=== PATIENT | female | born 1990 | race Caucasian/White ===

== ENCOUNTER 2017-08-21 10:08 | Emergency (ER) | payer OTHER ==
[~2017-08-21] VITALS: Ht 165.1 cm; Wt 49.0 kg
[~2017-08-21 10:08] MED LIST: CYCL10TA9 PO; NAPR-243 PO
--- OUTSIDE RECORDS SUMMARY | 2017-08-21 10:56 | XMS REPORT | Continuity of Care Document ---
Author Author [facility] Organization [facility] Address Unknown Phone Unavailable Allergies Active Description Code Type Severity Reaction Onset Reported/Identified Relationship to Patient Clinical Status Yes No Known Drug Allergies [id number] Drug Allergy Unknown N/A 03/11/2010 Medications There is no data. Problems Date Dx Coded Attending Type Code Diagnosis Diagnosed By 03/11/2010 Ot 530.81 03/11/2010 Ot 535.40 11/30/2014 YANNI MARSHALL Ot 847.0 11/30/2014 YANNI MARSHALL Ot 959.01 11/30/2014 YANNI MARSHALL Ot E812.0 Procedures There is no data. Results There is no data. Encounters ACCT No. Visit Date/Time Discharge Status Pt. Type Provider Facility Loc./Unit Complaint [id number] 11/30/2014 15:37:00 11/30/2014 17:17:00 DIS Emergency YANNI MARSHALL [facility] ER [id number] 03/11/2010 10:15:00 Document Registration
[2017-08-21] MEDS ORDERED: PROM25TA14 (11:34)
[2017-08-21] MEDS ORDERED: SULF1TAB35 (11:34)
[2017-08-21 11:46] LABS: BILIRUBIN,URINE NEGATIVE (NEGATIVE); CLARITY,URINE CLEAR; COLOR,URINE YELLOW; GLUCOSE, URINE (UA) NEGATIVE (NEGATIVE); KETONES,URINE NEGATIVE (NEGATIVE); LEUKOCYTE ESTERASE ,URINE 2+ (NEGATIVE); NITRITE,URINE NEGATIVE (NEGATIVE); PH,URINE 7 (5-9); PROTEIN,URINE NEGATIVE (NEGATIVE); UROBILINOGEN,URINE NORMAL (NORMAL)
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
[2017-08-21 11:59] LABS: AMPHETAMINE SCREEN, URINE NEGATIVE (NEGATIVE); BARBITURATE SCREEN URINE NEGATIVE (NEGATIVE); BENZODIAZEPINES SCREEN URINE NEGATIVE (NEGATIVE); CANNABINOID SCREEN, URINE NEGATIVE (NEGATIVE); COCAINE SCREEN URINE NEGATIVE (NEGATIVE); METHADONE STAT NEGATIVE (NEGATIVE); METHAMPHETAMINE SCREEN URINE S NEGATIVE (NEGATIVE); OPIATE SCREEN URINE NEGATIVE (NEGATIVE); OXYCODONE STAT NEGATIVE (NEGATIVE); PROPOXYPHENE STAT NEGATIVE (NEGATIVE); TRICYCLIC ANTIDEPRESSANTS SCRE NEGATIVE (NEGATIVE)
[2017-08-21 12:03] LABS: RBC,URINE 0-2 /HPF
[2017-08-21 12:04] LABS: BACTERIA,URINE TRACE /HPF; WBC,URINE 0-2 /HPF
[2017-08-21] MEDS ORDERED: CYCLOBENZAPRINE 10 MG (FLEXERIL) TAB PO STA (12:07)
[2017-08-21] MEDS ORDERED: ACETAMINOPHEN 325 MG TABLET PO STA (12:07)
[2017-08-21] MEDS ORDERED: CYCL10TA9 PO (12:26)
[2017-08-21 12:31] VITALS: BP 118/74
== END 2017-08-21 12:31 | disposition home or self-care (01) ==
LOC: EDUNIT# 10:08 → ER 10:11
DX: S09.90XA Unspecified injury of head, initial encounter (principal); S29.012A Strain of muscle and tendon of back wall of thorax, initial encounter; J45.909 Unspecified asthma, uncomplicated; R40.2142 Coma scale, eyes open, spontaneous, at arrival to emergency department; R40.2252 Coma scale, best verbal response, oriented, at arrival to emergency department; R40.2362 Coma scale, best motor response, obeys commands, at arrival to emergency department; Z87.19 Personal history of other diseases of the digestive system; Z87.828 Personal history of other (healed) physical injury and trauma; V43.52XA Car driver injured in collision with other type car in traffic accident, initial encounter
CPT/HCPCS: 80306; 81000; 84703; 99283

== ENCOUNTER 2018-02-10 23:07 | Emergency (ER) | payer SELFPAY ==
[~2018-02-10] VITALS: Ht 165.1 cm; Wt 53.5 kg
[~2018-02-10 23:07] MED LIST changes: +PROM25TA14; +SULF1TAB35
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
[2018-02-10 23:19] VITALS: BP 112/80
[2018-02-10 23:22] VITALS: BP_SYST 112; BP_SYST 117; BP_DIAS 80; BP_DIAS 82
--- NOTE | 2018-02-10 23:29 | ED Syncope ---
General Stated Complaint: SEIZURE,FELL & HIT HEAD Source of Information: Patient, Family Exam Limitations: No Limitations History of Present Illness Date Seen by Provider: Feb 10, 2018 Time Seen by Provider: 23:13 Initial Comments The patient presents to the ER by private conveyance with her mother and significant other and chief complaint that just prior to arrival she was in the kitchen and she said she was making a peanut butter and honey sandwich and she doesn't remember anything past that until she woke up on the floor with her mother shouting over her. Her mother says that she fell to the ground struck her head and had some convulsions and seizure-like activity for 1 minute or less. She does not have a history of seizures but she does have a history of syncopal episodes in the past. She denies smoking drinking or using drugs. She does not have any postictal period nor does she have any nausea, confusion or headache. She says she's having no pain right now. No pain in her neck. No recent illness, cough fevers, chills, sweats, shortness of breath, nausea, vomiting, diarrhea. She says been eating and drinking normally. She is on her period presently. She has no medical or surgical history. She does take medicines for anxiety, panic attacks and stomach ulcers for which she is on Carafate and Nexium. She takes Remeron, desvenlafaxine. She denies history of thyroid or diabetes. Allergies and Home Medications Allergies Coded Allergies: amoxicillin (Verified Allergy, Unknown, RASH, 02/10/18) Home Medications Cyclobenzaprine HCl 10 Mg Tablet, 10 MG PO Q8H Prescribed by: MARY ROOT on 08/21/17 1226 Cyclobenzaprine Hcl 10 Mg Tablet, 1 EACH PO Q8H PRN for SPASMS Prescribed by: YANNI BLANCAS on 11/30/14 170 Naproxen 500 Mg Tablet, 1 EACH PO BID PRN for PAIN FOR PAIN Prescribed by: YANNI BLANCAS on 11/30/14 170 Patient Home Medication List Home Medication List Reviewed: Yes Review of Systems Constitutional: No chills, No diaphoresis EENTM: No ear discharge, No hearing loss, No mouth pain, No mouth swelling Respiratory: No orthopnea, No phlegm, No short of breath, No wheezing Cardiovascular: No chest pain, No edema; syncope; No vascular heart diseas Gastrointestinal: No abdominal pain, No constipation, No diarrhea Genitourinary: No discharge; dysuria Past Mvgvgqw-Cvpxsu-Zkzcja Hx Patient Social History Alcohol Use: Denies Use Recreational Drug Use: No Smoking Status: Never a Smoker Recent Foreign Travel: No Contact w/Someone Who Travel: No Recent Hopitalizations: No Immunizations Up To Date Tetanus Booster (TDap): Less than 5yrs PED Vaccines UTD: Yes Seasonal Allergies Seasonal Allergies: No Past Medical History Surgeries: Yes (ORAL) Respiratory: Yes Asthma Cardiac: No Neurological: No Gastrointestinal: Yes (ULCER) Musculoskeletal: No Endocrine: No Cancer: No Psychosocial: No Integumentary: No Blood Disorders: No Physical Exam Vital Signs Vital Signs - First Documented 02/10/18 23:15 Temp 97.0 Pulse 73 Resp 17 B/P (MAP) 112/80 (91) Capillary Refill : Height, Weight, BMI Height: 5'5.00" Weight: 108lbs. oz. 48.726320my; BMI Method:Stated General Appearance: No Apparent Distress, Thin HEENT: PERRL/EOMI, TMs Normal, Normal ENT Inspection, Pharynx Normal, Moist Mucous Membranes, Other (head and scalp atraumatic without battles sign, raccoon eyes or hemotympanum) Neck: Full Range of Motion, Normal Inspection, Non Tender, Supple Cardiovascular: Regular Rate, Rhythm, No Edema, Normal Peripheral Pulses Respiratory: Chest Non Tender, Lungs Clear, Normal Breath Sounds, No Accessory Muscle Use, No Respiratory Distress Gastrointestinal: Normal Bowel Sounds, Non Tender, Soft Back: Normal Inspection, No Vertebral Tenderness Extremities: Normal Capillary Refill, Normal Inspection, Normal Range of Motion , Non Tender, No Pedal Edema Neurologic/Psychiatric: Alert, Oriented x3, No Motor/Sensory Deficits, Normal Mood/Affect, utility hand II-XII Norm as Tested Cranial Nerves: Normal Hearing, Normal Speech, PERRL Motor/Sensory: No Motor Deficit, No Sensory Deficit Skin: Normal Color, Warm/Dry Progress/Results/Core Measures Results/Orders Lab Results Laboratory Tests Test 02/10/18 23:35 02/10/18 23:50 Range/Units Urine Color YELLOW Urine Clarity CLEAR Urine pH 6 5-9 Urine Specific Glover 1.025 H 1.016-1.022 Urine Protein 2+ H NEGATIVE Urine Glucose (UA) NEGATIVE NEGATIVE Urine Ketones NEGATIVE NEGATIVE Urine Nitrite NEGATIVE NEGATIVE Urine Bilirubin NEGATIVE NEGATIVE Urine Urobilinogen NORMAL NORMAL MG/DL Urine Leukocyte Esterase 2+ H NEGATIVE Urine RBC (Auto) 5+ H NEGATIVE Urine RBC 2-5 H /HPF Urine WBC 5-10 H /HPF Urine Squamous Epithelial Cells 10-25 H /HPF Urine Crystals NONE /LPF Urine Bacteria MODERATE H /HPF Urine Casts NONE /LPF Urine Mucus LARGE H /LPF Urine Culture Indicated YES Urine Opiates Screen NEGATIVE NEGATIVE Urine Oxycodone Screen NEGATIVE NEGATIVE Urine Methadone Screen NEGATIVE NEGATIVE Urine Propoxyphene Screen NEGATIVE NEGATIVE Urine Barbiturates Screen NEGATIVE NEGATIVE Ur Tricyclic Antidepressants Screen POSITIVE H NEGATIVE Urine Phencyclidine Screen NEGATIVE NEGATIVE Urine Amphetamines Screen NEGATIVE NEGATIVE Urine Methamphetamines Screen NEGATIVE NEGATIVE Urine Benzodiazepines Screen NEGATIVE NEGATIVE Urine Cocaine Screen NEGATIVE NEGATIVE Urine Cannabinoids Screen NEGATIVE NEGATIVE White Blood Count 7.3 4.3-11.0 10^3/uL Red Blood Count 4.19 L 4.35-5.85 10^6/uL Hemoglobin 13.7 11.5-16.0 G/DL Hematocrit 39 35-52 % Mean Corpuscular Volume 94 80-99 FL Mean Corpuscular Hemoglobin 33 25-34 PG Mean Corpuscular Hemoglobin Concent 35 32-36 G/DL Red Cell Distribution Width 12.1 10.0-14.5 % Platelet Count 264 130-400 10^3/uL Mean Platelet Volume 9.2 7.4-10.4 FL Neutrophils (%) (Auto) 59 42-75 % Lymphocytes (%) (Auto) 29 12-44 % Monocytes (%) (Auto) 10 0-12 % Eosinophils (%) (Auto) 3 0-10 % Basophils (%) (Auto) 1 0-10 % Neutrophils # (Auto) 4.3 1.8-7.8 X 10^3 Lymphocytes # (Auto) 2.1 1.0-4.0 X 10^3 Monocytes # (Auto) 0.7 0.0-1.0 X 10^3 Eosinophils # (Auto) 0.2 0.0-0.3 10^3/uL Basophils # (Auto) 0.0 0.0-0.1 10^3/uL Sodium Level 138 135-145 MMOL/L Potassium Level 3.5 L 3.6-5.0 MMOL/L Chloride Level 105 98-107 MMOL/L Carbon Dioxide Level 24 21-32 MMOL/L Anion Gap 9 5-14 MMOL/L Blood Urea Nitrogen 13 7-18 MG/DL Creatinine 0.86 0.60-1.30 MG/DL Estimat Glomerular Filtration Rate > 60 BUN/Creatinine Ratio 15 Glucose Level 106 H 70-105 MG/DL Calcium Level 9.3 8.5-10.1 MG/DL Corrected Calcium 9.0 8.5-10.1 MG/DL Total Bilirubin 0.3 0.1-1.0 MG/DL Aspartate Amino Transf (AST/SGOT) 15 5-34 U/L Alanine Aminotransferase (ALT/SGPT) 16 0-55 U/L Alkaline Phosphatase 69 40-136 U/L Total Protein 7.1 6.4-8.2 GM/DL Albumin 4.4 3.2-4.5 GM/DL Thyroid Stimulating Hormone (TSH) 7.25 H 0.35-4.94 UIU/ML Serum Test, Qualitative NEGATIVE NEGATIVE My Orders Orders - CELESTE KUHN Cbc With Automated Diff (02/10/18 23:20) Comprehensive Metabolic Panel (02/10/18 23:20) Drug Screen Stat (Urine) (02/10/18 23:20) Hcg,Qualitative Serum (02/10/18 23:20) Ua Culture If Indicated (02/10/18 23:20) Orthostatic Vital Signs (Adult (02/10/18 23:20) Ekg Tracing (02/10/18 23:20) Continuous Ekg Monitoring (02/10/18 23:20) Thyroid Stimulating Hormone (02/10/18 23:20) Urine Culture (02/10/18 23:35) Chest 1 View, Ap/Pa Only (02/11/18 00:01) Vital Signs/I&O 02/10/18 02/10/18 23:15 23:22 Temp 97.0 Pulse 73 73 79 Resp 17 B/P (MAP) 112/80 (91) 112/80 (91) 117/82 (94) Progress Progress Note : Time: 23:30 Progress Note Syncopal episode with collapse from standing. No evidence of outward trauma. She 's not on blood thinners and given her age a intracranial hemorrhage with normal neurologic testing is low likelihood. She is agreed to do 12 hours of at home neurologic observation. Looking for a source for her syncopal episode we will obtain a urinalysis, basic labs and a set of orthostatic vital signs. The orthostatic vital signs are unremarkable. EKG reveals first-degree AV block. Review of previous records demonstrates she did have a Holter monitor in 2006 that was unremarkable. No other previous workup is evident per our records. We will obtain TSH, basic labs, urinalysis, urine hCG and keep her on the monitor while she's here. If we don't find a reason for her syncopal collapse and we can set her up outpatient with her primary care doctor and/or party planner to rule out dysrhythmia. As far as her seizure-like activity after the collapse it's possible this could be seizures but since this is the first isolated incident had occurred after she fell and is more likely just reactive to whatever initially caused her syncope. Initial ECG Impression Date: Feb 10, 2018 Initial ECG Impression Time: 23:24 Initial ECG Rate: 67 Initial ECG Rhythm: Normal Sinus Initial ECG Intervals: CO (216) Initial ECG Impression: 1st Degree AV Block Initial ECG Comparisson: No Previous ECG Available Comment First-degree AV block without any ST elevation or depression. Diagnostic Imaging Diagonstic Imaging: Xray Plain Films/CT/US/NM/MRI: chest (1v) Comments No acute cardiopulmonary process noted. Reviewed: Reviewed by Me Departure Impression Primary Impression: Syncope and collapse Additional Impressions: Observed seizure-like activity UTI (urinary tract infection) Qualified Codes: N30.00 - Acute cystitis without hematuria Hypothyroidism (acquired) Disposition: 01 HOME, SELF-CARE Condition: Stable Departure-Patient Inst. Decision time for Depature: 00:59 Referrals: [facility] (PCP/Family) Primary Care Physician Patient Instructions: Hypothyroidism (Underactive Thyroid) (DC), Syncope ( Fainting) (DC) Add. Discharge Instructions: Please picker tender the Macrobid and start taking it twice a day with food for the next 7 days to treat your urinary tract infection. supervisor rolling room the Synthroid and start taking it 30 minutes before eating or drinking in the morning and continue doing this until you see your primary care doctor in the next 1-2 weeks. Scripts Levothyroxine Sodium (Synthroid) 50 Mcg Tablet 50 MCG PO DAILY for 30 Days, #30 TAB 0 Refills Prov: CELESTE KUHN 02/11/18 Nitrofurantoin Macrocrystal (Nitrofurantoin) 100 Mg Capsule 100 MG PO BID, #14 CAP 0 Refills Prov: CELESTE KUHN 02/11/18 Copy Copies To 1: NADEEM KUMAR TITUS J Feb 10, 2018 23:29
[2018-02-10 23:42] LABS: BILIRUBIN,URINE NEGATIVE (NEGATIVE); CLARITY,URINE CLEAR; COLOR,URINE YELLOW; GLUCOSE, URINE (UA) NEGATIVE (NEGATIVE); KETONES,URINE NEGATIVE (NEGATIVE); LEUKOCYTE ESTERASE ,URINE 2+ (NEGATIVE); NITRITE,URINE NEGATIVE (NEGATIVE); PH,URINE 6 (5-9); PROTEIN,URINE 2+ (NEGATIVE); UROBILINOGEN,URINE NORMAL (NORMAL)
[2018-02-10 23:55] LABS: BACTERIA,URINE MODERATE /HPF; METHADONE STAT NEGATIVE (NEGATIVE); TRICYCLIC ANTIDEPRESSANTS SCRE POSITIVE (NEGATIVE)
[2018-02-10 23:56] LABS: AMPHETAMINE SCREEN, URINE NEGATIVE (NEGATIVE); BARBITURATE SCREEN URINE NEGATIVE (NEGATIVE); BENZODIAZEPINES SCREEN URINE NEGATIVE (NEGATIVE); CANNABINOID SCREEN, URINE NEGATIVE (NEGATIVE); COCAINE SCREEN URINE NEGATIVE (NEGATIVE); METHAMPHETAMINE SCREEN URINE S NEGATIVE (NEGATIVE); OPIATE SCREEN URINE NEGATIVE (NEGATIVE); OXYCODONE STAT NEGATIVE (NEGATIVE); PROPOXYPHENE STAT NEGATIVE (NEGATIVE)
[2018-02-10 23:56] LABS: BASOPHILS % (AUTO) 1 % (0-10); EOSINOPHILS # (AUTO) 0.2 10^3/uL (0.0-0.3); EOSINOPHILS % (AUTO) 3 % (0-10); HEMATOCRIT 39 % (35-52); HEMOGLOBIN 13.7 G/DL (11.5-16.0); LYMPHOCYTES # (AUTO) 2.1 X 10^3 (1.0-4.0); LYMPHOCYTES % (AUTO) 29 % (12-44); MEAN CORPUSCULAR HEMOGLOBIN 33 PG (25-34); MEAN CORPUSCULAR HGB CONC 35 G/DL (32-36); MEAN CORPUSCULAR VOLUME 94 FL (80-99); MEAN PLATELET VOLUME 9.2 FL (7.4-10.4); MONOCYTES # (AUTO) 0.7 X 10^3 (0.0-1.0); MONOCYTES % (AUTO) 10 % (0-12); NEUTROPHILS # (AUTO) 4.3 X 10^3 (1.8-7.8); NEUTROPHILS % (AUTO) 59 % (42-75); PLATELET COUNT 264 10^3/uL (130-400); RED BLOOD COUNT 4.19 10^6/uL (4.35-5.85); RED CELL DISTRIBUTION WIDTH 12.1 % (10.0-14.5); WHITE BLOOD COUNT 7.3 10^3/uL (4.3-11.0)
[2018-02-11 00:16] LABS: BUN/CREATININE RATIO 15; CARBON DIOXIDE 24 MMOL/L (21-32); CHLORIDE 105 MMOL/L (98-107); CREATININE SERUM 0.86 MG/DL (0.60-1.30); POTASSIUM 3.5 MMOL/L (3.6-5.0); SODIUM 138 MMOL/L (135-145)
[2018-02-11 00:17] LABS: ALANINE AMINOTRANSFERASE 16 U/L (0-55); ALBUMIN 4.4 GM/DL (3.2-4.5); ALKALINE PHOSPHATASE 69 U/L (40-136); BILIRUBIN,TOTAL 0.3 MG/DL (0.1-1.0); CALCIUM 9.3 MG/DL (8.5-10.1); GFR ESTIMATED > 60; GLUCOSE 106 MG/DL (70-105); TOTAL PROTEIN 7.1 GM/DL (6.4-8.2)
[2018-02-11] MEDS ORDERED: NITR100C PO (01:01)
[2018-02-11] MEDS ORDERED: LEVO50TA PO (01:01)
[2018-02-11 01:22] VITALS: BP 117/82
--- NOTE | 2018-02-11 06:50 | Diagnostic Imaging Report ---
INDICATION: Syncope. COMPARISON: 11/30/2014. FINDINGS: Single view of the chest demonstrate clear lungs bilaterally. The heart is normal. There is no pneumothorax. Osseous structures are normal. IMPRESSION: Negative chest. Dictated by: Dictated on workstation # [id number]
== END 2018-02-11 01:24 | disposition home or self-care (01) ==
LOC: EDUNIT# 23:07 → ER 23:10
DX: N39.0 Urinary tract infection, site not specified (principal); R25.9 Unspecified abnormal involuntary movements; E03.9 Hypothyroidism, unspecified; F41.0 Panic disorder [episodic paroxysmal anxiety]; J45.909 Unspecified asthma, uncomplicated; Z87.19 Personal history of other diseases of the digestive system; Z88.0 Allergy status to penicillin
CPT/HCPCS: 36415; 71045; 80053; 80306; 81000; 84443; 84703; 85025; 87088; 93005

== ENCOUNTER 2018-06-29 19:37 | Emergency (ER) | payer SELFPAY ==
[~2018-06-29] VITALS: Ht 165.1 cm; Wt 49.9 kg
[~2018-06-29 19:37] MED LIST changes: +LEVO50TA PO; +NITR100C PO
[2018-06-29] MEDS ORDERED: hydrOXYzine (VISTARIL) 25 MG capsule/tablet PO ONE (19:45)
[2018-06-29] MEDS ORDERED: QUET25TA PO (19:47)
--- NOTE | 2018-06-29 19:52 | ED Psychosocial ---
General Chief Complaint: Psych/Social Disorder Stated Complaint: ANXIETY Source: patient Exam Limitations: no limitations History of Present Illness Date Seen by Provider: Jun 29, 2018 Time Seen by Provider: 19:50 Initial Comments Patient is employed here in [employer]. She came down to the emergency room to report that she was having a panic attack. She states that she is usually able to abort these with the use of essential oils, but that failed this evening. Timing/Duration: constant Severity: moderate Associated Symptoms: anxiety Allergies and Home Medications Allergies Coded Allergies: amoxicillin (Verified Allergy, Unknown, RASH, 02/10/18) Home Medications Levothyroxine Sodium 50 Mcg Tablet, 50 MCG PO DAILY Prescribed by: CELESTE KUHN on 02/11/18 0101 Patient Home Medication List Home Medication List Reviewed: Yes Review of Systems Constitutional: see HPI EENTM: see HPI Respiratory: no symptoms reported Cardiovascular: no symptoms reported Genitourinary: no symptoms reported Musculoskeletal: no symptoms reported Skin: no symptoms reported Psychiatric/Neurological: See HPI, Anxiety Past Rqgzwdh-Jryexh-Ezoixv Hx Patient Social History Alcohol Use: Denies Use Recreational Drug Use: No Smoking Status: Never a Smoker 2nd Hand Smoke Exposure: No Recent Foreign Travel: No Contact w/Someone Who Travel: No Recent Hopitalizations: No Immunizations Up To Date Tetanus Booster (TDap): Less than 5yrs PED Vaccines UTD: Yes Seasonal Allergies Seasonal Allergies: No Past Medical History Surgeries: Yes (ORAL) Respiratory: Yes Asthma Cardiac: No Neurological: No Genitourinary: No Gastrointestinal: Yes Ulcer Musculoskeletal: No Endocrine: Yes Hypothyroidsim HEENT: No Cancer: No Psychosocial: Yes Anxiety Integumentary: No Blood Disorders: No Physical Exam Capillary Refill : Height, Weight, BMI Height: 5'5.00" Weight: 118lbs. oz. 53.924884op; 18.30 BMI Method:Stated General Appearance: WD/WN, no apparent distress HEENT: PERRL/EOMI, normal ENT inspection, TMs normal Neck: non-tender, full range of motion Respiratory: no respiratory distress, no accessory muscle use Gastrointestinal: normal bowel sounds, non tender, soft Neurologic/Psychiatric: alert, normal mood/affect, oriented x 3 Appearance/Memory: appropriate appearance, appropriate insight Behavior/Eye Contact: cooperative, good eye contact Thoughts/Hallucinations: normal thought pattern, no apparent hallucination Skin: normal color, warm/dry Progress/Results/Core Measures Results/Orders My Orders Orders - JALEESA CANDELARIO APRN Hydroxyzine Cap/Tab (Vistaril) (06/29/18 19:45) Departure Impression Primary Impression: Anxiety Disposition: 01 HOME, SELF-CARE Condition: Stable Departure-Patient Inst. Decision time for Depature: 19:51 Referrals: [facility] (PCP/Family) Primary Care Physician Patient Instructions: Panic Disorder (DC) JALEESA CANDELARIO APRN Jun 29, 2018 19:52
[2018-06-29 21:00] VITALS: BP 113/72
== END 2018-06-29 21:00 | disposition home or self-care (01) ==
LOC: EDUNIT# 19:37 → ER 19:38
DX: F41.9 Anxiety disorder, unspecified (principal); J45.909 Unspecified asthma, uncomplicated; E03.9 Hypothyroidism, unspecified; Z88.0 Allergy status to penicillin; Z87.19 Personal history of other diseases of the digestive system
CPT/HCPCS: 99283

== ENCOUNTER 2018-09-14 14:11 | Emergency (ER) | payer SELFPAY ==
[~2018-09-14] VITALS: Ht 165.1 cm; Wt 49.9 kg
[~2018-09-14 14:11] MED LIST changes: +QUET25TA PO
[2018-09-14] MEDS ORDERED: AZIT250T12 PO (14:25)
--- NOTE | 2018-09-14 14:25 | ED EENT ---
History of Present Illness General Stated Complaint: SORE THROAT Source: patient Exam Limitations: no limitations History of Present Illness Date Seen by Provider: September 14, 2018 Time Seen by Provider: 14:19 Initial Comments 27-year-old female who presents to the emergency room with complaints of sore throat for the past 4 days. She reports that she was seen and evaluated at [facility] and had negative strep test. She reports her throat is still sore and has been using essential oils for pain. She reports that she has been running intermittent fevers. Denies alcohol or drug use Timing/Duration: other Location: throat Prearrival Treatment: other (essential oil) Associated Symptoms: fever, sore throat Allergies and Home Medications Allergies Coded Allergies: amoxicillin (Verified Allergy, Unknown, RASH, 02/10/18) Home Medications Azithromycin 250 Mg Tablet, 250 MG PO UD TAKE 2 TABLETS ON DAY ONE THEN TAKE 1 TABLET DAILY FOR FOUR MORE DAYS Prescribed by: SAMSON TOBAR on 09/14/18 1425 Levothyroxine Sodium 50 Mcg Tablet, 50 MCG PO DAILY Prescribed by: CELESTE KUHN on 02/11/18 0101 Patient Home Medication List Home Medication List Reviewed: Yes Review of Systems Review of Systems Constitutional: see HPI; No chills; fever Throat: see HPI, pain; denies muffled All Other Systems Reviewed Negative Unless Noted: Yes Past Yowokzv-Rdooff-Nkaesv Hx Past Med/Social Hx: Reviewed Nursing Past Med/Soc Hx Patient Social History 2nd Hand Smoke Exposure: No Recent Hopitalizations: No Immunizations Up To Date Tetanus Booster (TDap): Less than 5yrs PED Vaccines UTD: Yes Seasonal Allergies Seasonal Allergies: No Past Medical History Surgeries: Yes (ORAL) Respiratory: Yes Asthma Cardiac: No Neurological: No Genitourinary: No Gastrointestinal: Yes Ulcer Musculoskeletal: No Endocrine: Yes Hypothyroidsim HEENT: No Cancer: No Psychosocial: Yes Anxiety Integumentary: No Blood Disorders: No Family Medical History Reviewed Nursing Family Hx Physical Exam Vital Signs Vital Signs - First Documented 09/14/18 14:16 Temp 96.7 Pulse 84 Resp 18 B/P (MAP) 121/66 (84) Pulse Ox 100 O2 Delivery Room Air Height, Weight, BMI Height: 5'5.00" Weight: 110lbs. oz. 49.217185xh; 18.30 BMI Method:Stated General Appearance: WD/WN, no apparent distress Mouth/Throat: No voice changes (no muffled voice.); other (pharyngeal erythema) Neck: non-tender, full range of motion, supple, normal inspection Cardiovascular: normal peripheral pulses, regular rate, rhythm, no edema, no gallop, no JVD, no murmur Respiratory: chest non-tender, lungs clear, normal breath sounds, no respiratory distress, no accessory muscle use Neurologic/Psychiatric: alert, normal mood/affect, oriented x 3 Skin: normal color, warm/dry Progress/Results/Core Measures Results/Orders Lab Results Departure Impression Primary Impression: Strep pharyngitis Disposition: HOME, SELF-CARE Condition: Stable/Unchanged Departure-Patient Inst. Decision time for Depature: 14:23 Referrals: [facility] [place] (PCP/Family) Primary Care Physician Patient Instructions: Strep Throat (DC), Sore Throat, Adult (DC) Add. Discharge Instructions: Take antibiotics as directed. You may use ibuprofen and Tylenol as needed for pain and fever. Ddzs-czu-kkipkwa throat lozenges/sprays may be beneficial to sooth your sore throat. Follow-up with her primary care provider as needed. Return back to the emergency room for worsening symptoms or concerns as needed. Scripts Azithromycin (Azithromycin) 250 Mg Tablet 250 MG PO UD, #6 TAB TAKE 2 TABLETS ON DAY ONE THEN TAKE 1 TABLET DAILY FOR FOUR MORE DAYS Prov: SAMSON TOBAR 09/14/18 SAMSON TOBAR September 14, 2018 14:25
[2018-09-14 15:16] VITALS: BP 121/66
== END 2018-09-14 15:16 | disposition home or self-care (01) ==
LOC: EDUNIT# 14:11 → ER 14:13
DX: J02.0 Streptococcal pharyngitis (principal); J45.909 Unspecified asthma, uncomplicated; E03.9 Hypothyroidism, unspecified; F41.9 Anxiety disorder, unspecified; Z87.19 Personal history of other diseases of the digestive system; Z88.0 Allergy status to penicillin
CPT/HCPCS: 87430; 99284

== ENCOUNTER → 2018-10-08 | Emergency (ER) | payer SELFPAY ==
[~2018-10-08] VITALS: Ht 165.1 cm; Wt 49.9 kg
[~2018-10-08] MED LIST changes: +AZIT250T12 PO; +LIDOCAINE 1% INJ 20 ML 20 ML VIAL INJ ONE; +TETANUS,DIPTH,PERTUSS P/F (BOOSTRIX) 0.5 ML VIAL IM ONE
--- NOTE | 2018-10-08 13:11 | ED Integumentary General ---
General Chief Complaint: Laceration Stated Complaint: L HAND INDEX FINGER LAC/HEAD INJ Nursing Triage Note: AMBULATED TO TRIAGE WITH HELP. 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 PT PASSED OUT ET HIT HER HEAD ON THE ROCK. FAMILY REPORTS SEIZURE LIKE ACTIVITY THREE TIMES AFTER HITTING HER HEAD. Source: patient Exam Limitations: no limitations History of Present Illness Date Seen by Provider: Oct 08, 2018 Time Seen by Provider: 13:00 Initial Comments 27-year-old female who was brought to the emergency room by her mother with co mplaints of a laceration to her left index finger with a fishing knife. After seeing the blood she passed out fell and hit her head on a rock. Family reports that she was shaking after she fainted. Patient is alert and oriented on arrival to the emergency room. She reports that she faints when she sees her own blood often. She has an abrasion to the right side of her forehead Timing/Duration: just prior to arrival Associated Symptoms: denies symptoms Allergies and Home Medications Allergies Coded Allergies: amoxicillin (Verified Allergy, Unknown, RASH, 02/10/18) Home Medications Azithromycin 250 Mg Tablet, 250 MG PO UD TAKE 2 TABLETS ON DAY ONE THEN TAKE 1 TABLET DAILY FOR FOUR MORE DAYS Prescribed by: SAMSON TOBAR on 09/14/18 1425 Levothyroxine Sodium 50 Mcg Tablet, 50 MCG PO DAILY Prescribed by: CELESTE KUHN on 02/11/18 0101 Patient Home Medication List Home Medication List Reviewed: Yes Review of Systems Review of Systems Constitutional: see HPI; No chills, No fever Skin: see HPI, other (laceration to left index finger) Psychiatric/Neurological: See HPI, Headache All Other Systems Reviewed Negative Unless Noted: Yes Past Ibuxtoj-Hssadc-Pqpadr Hx Past Med/Social Hx: Reviewed Nursing Past Med/Soc Hx Patient Social History Alcohol Use: Denies Use Recreational Drug Use: No 2nd Hand Smoke Exposure: No Recent Foreign Travel: No Contact w/Someone Who Travel: No Recent Infectious Disease Expo: No Recent Hopitalizations: No Immunizations Up To Date Tetanus Booster (TDap): Less than 5yrs PED Vaccines UTD: Yes Seasonal Allergies Seasonal Allergies: No Past Medical History Surgeries: Yes (ORAL) Respiratory: Yes Asthma Cardiac: No Neurological: No : No Last Menstrual Period: Oct 08, 2018 Genitourinary: No Gastrointestinal: Yes Ulcer Musculoskeletal: No Endocrine: Yes Hypothyroidsim HEENT: No Cancer: No Psychosocial: Yes Anxiety Integumentary: No Blood Disorders: No Family Medical History Reviewed Nursing Family Hx Physical Exam Vital Signs Vital Signs - First Documented 10/08/18 12:55 Temp 98.0 Pulse 99 Resp 16 B/P (MAP) 113/68 (83) Pulse Ox 98 O2 Delivery Room Air Capillary Refill : Less Than 3 Seconds General Appearance: WD/WN, no apparent distress Cardiovascular: normal peripheral pulses, regular rate, rhythm, no edema, no gallop, no JVD, no murmur Respiratory: chest non-tender, lungs clear, normal breath sounds, no respiratory distress, no accessory muscle use Extremities: normal capillary refill Neurologic/Psychiatric: alert, normal mood/affect, oriented x 3 Skin: normal color, warm/dry Skin Problem Location: face (right for head abrasion), upper extremities (left second finger laceration to the palmar surface 0.5 cm skin flap) Procedures/Interventions Other Wound Location Left index finger palmar surface Wound Length (cm): 0.5 Wound's Depth, Shape: flap Wound Explored: clean Other Closure Supply: Wound Adhesive Progress/Results/Core Measures Results/Orders My Orders Orders - SAMSON TOBAR Ct Head Wo (10/08/18 13:02) Lidocaine 1% Inj 20 Ml (Xylocaine 1% Inj (10/08/18 13:15) Dipht,Pertuss(Acell),Tet Adult (Boostrix (10/08/18 13:15) Medications Given in ED Vital Signs/I&O 10/08/18 10/08/18 12:55 14:12 Temp 98.0 97.6 Pulse 99 78 Resp 16 16 B/P (MAP) 113/68 (83) 120/70 (87) Pulse Ox 98 100 O2 Delivery Room Air Blood Pressure Mean: 83 Departure Impression Primary Impression: Skin avulsion Additional Impression: Minor head injury Disposition: 01 HOME, SELF-CARE Condition: Stable/Unchanged Departure-Patient Inst. Referrals: [facility] (PCP/Family) Primary Care Physician Patient Instructions: Laceration Repair With Glue (DC), Minor Head Injury Add. Discharge Instructions: Let the glue fall off on its own, do not use ointments lotions or soaps directly to the area. Watch for signs of infection such as increased redness, swelling, drainage, pain. Follow-up with her primary care provider within 1 week for recheck. Return back to the emergency room for worsening symptoms or concerns as needed. All discharge instructions reviewed with patient and/or family. Voiced understanding. SAMSON TOBAR Oct 08, 2018 13:11
--- NOTE | 2018-10-08 13:38 | Diagnostic Imaging Report ---
PROCEDURE: CT head without contrast. TECHNIQUE: Multiple contiguous axial images were obtained through the brain without the use of intravenous contrast. Auto Exposure Controls were utilized during the CT exam to meet ALARA standards for radiation dose reduction. INDICATION: Syncope and head injury. Comparison is made with prior head CT from 11/30/2014. FINDINGS: Ventricles and sulci are within normal limits. No sulcal effacement or midline shift is seen. No acute intra-axial or extra-axial hemorrhage is detected. Cisterns are patent. Visualized paranasal sinuses are clear. No depressed calvarial fracture is seen. IMPRESSION: No acute intracranial process is detected. Dictated by: Dictated on workstation # [id number]
[2018-10-08 14:12] VITALS: BP 120/70
== END | disposition home or self-care (01) ==
LOC: EDUNIT# 12:49 → ER 12:50
DX: S09.90XA Unspecified injury of head, initial encounter (principal); S61.211A Laceration without foreign body of left index finger without damage to nail, initial encounter; J45.909 Unspecified asthma, uncomplicated; E03.9 Hypothyroidism, unspecified; F41.9 Anxiety disorder, unspecified; Z87.19 Personal history of other diseases of the digestive system; Z23 Encounter for immunization; Z88.1 Allergy status to other antibiotic agents; W26.0XXA Contact with knife, initial encounter; W01.198A Fall on same level from slipping, tripping and stumbling with subsequent striking against other object, initial encounter
CPT/HCPCS: 70450; 90471; 90715

== ENCOUNTER 2019-06-18 14:38 | Emergency (ER) | payer SELFPAY ==
[~2019-06-18] VITALS: Ht 165 cm; Wt 55.9 kg
[~2019-06-18 14:38] MED LIST changes: -LIDOCAINE 1% INJ 20 ML 20 ML VIAL INJ ONE; -TETANUS,DIPTH,PERTUSS P/F (BOOSTRIX) 0.5 ML VIAL IM ONE
[2019-06-18] MEDS ORDERED: CEPH500T PO (15:08)
[2019-06-18] MEDS ORDERED: CLOT15CR4 TP (15:08)
--- NOTE | 2019-06-18 15:08 | ED EENT ---
History of Present Illness General Chief Complaint: Ear Problems Stated Complaint: LEFT EAR PAIN/SWELLING/ITCHING RING WORM ON ABD Nursing Triage Note: PT AMB TO TRIAGE WITH COMPLAINT OF LEFT EAR SWELLING AND REDNESS. ALSO HAS RINGWORM ON ABD THAT WOULD LIKE LOOKED AT. WAS SEEN BY [facility] FOR THE RIGNWORM BUT MEDICINE WORSENED THE CONDITION Source: patient Exam Limitations: no limitations History of Present Illness Date Seen by Provider: Jun 18, 2019 Time Seen by Provider: 15:04 Initial Comments To ER with reports of left ear swelling and itchiness redness and discomfort for the past week or so. This affects the upper part of the external ear, she also has ringworm to the anterior abdomen for 3 months, was given an antifungal cream but that seems to only make this worse. Timing/Duration: abrupt Severity: moderate Location: ear (L) Associated Symptoms: denies symptoms Allergies and Home Medications Allergies Coded Allergies: amoxicillin (Verified Allergy, Unknown, RASH, 02/10/18) Home Medications Azithromycin 250 Mg Tablet, 250 MG PO UD TAKE 2 TABLETS ON DAY ONE THEN TAKE 1 TABLET DAILY FOR FOUR MORE DAYS Prescribed by: SAMSON TOBAR on 09/14/18 1425 Levothyroxine Sodium 50 Mcg Tablet, 50 MCG PO DAILY Prescribed by: CELESTE KUHN on 02/11/18 0101 Patient Home Medication List Home Medication List Reviewed: Yes Review of Systems Review of Systems Constitutional: see HPI Eyes: No Symptoms Reported Ears: No Symptoms Reported Nose: no symptoms reported Mouth: no symptoms reported Throat: no symptoms reported Respiratory: no symptoms reported Cardiovascular: no symptoms reported Musculoskeletal: no symptoms reported Skin: see HPI Neurological: No Symptoms Reported Hematologic/Lymphatic: No Symptoms Reported Past Ueiupeb-Krlplc-Avpbip Hx Patient Social History Alcohol Use: Denies Use Recreational Drug Use: No Smoking Status: Never a Smoker 2nd Hand Smoke Exposure: No Recent Foreign Travel: No Contact w/Someone Who Travel: No Recent Infectious Disease Expo: No Recent Hopitalizations: No Immunizations Up To Date Tetanus Booster (TDap): Less than 5yrs PED Vaccines UTD: Yes Seasonal Allergies Seasonal Allergies: No Past Medical History Surgeries: Yes (ORAL) Respiratory: Yes Asthma Cardiac: No Neurological: No Genitourinary: No Gastrointestinal: Yes Ulcer Musculoskeletal: No Endocrine: Yes Hypothyroidsim HEENT: No Cancer: No Psychosocial: Yes Anxiety Integumentary: No Blood Disorders: No Physical Exam Vital Signs Vital Signs - First Documented 2/10/20 14:50 Temp 36.5 Pulse 98 Resp 20 B/P (MAP) 140/90 (107) Pulse Ox 99 O2 Delivery Room Air Height, Weight, BMI Height: 5'5.00" Weight: 110lbs. oz. 49.459367lf; 20.00 BMI Method:Stated General Appearance: WD/WN, no apparent distress Eyes: bilateral eye normal inspection, bilateral eye PERRL, bilateral eye EOMI Ears: left ear auricle normal (slight erythema without swelling to the auricle of the ear, there are no piercings to the auricle of the ear. There is a very minimally enlarged posterior auricular lymph node.); bilateral ear canal normal, bilateral ear TM normal Mouth/Throat: normal mouth inspection Neck: non-tender, full range of motion Respiratory: no respiratory distress, no accessory muscle use Gastrointestinal: normal bowel sounds, non tender Neurologic/Psychiatric: alert, normal mood/affect, oriented x 3 Skin: normal color, warm/dry Progress/Results/Core Measures Results/Orders Vital Signs/I&O 06/18/19 14:50 Temp 36.5 Pulse 98 Resp 20 B/P (MAP) 140/90 (107) Pulse Ox 99 O2 Delivery Room Air Blood Pressure Mean: 107 Departure Impression Primary Impression: auricular itching Additional Impression: Skin lesion Disposition: 01 HOME, SELF-CARE Condition: Stable Departure-Patient Inst. Decision time for Depature: 15:07 Referrals: [facility] (PCP/Family) Primary Care Physician Patient Instructions: NO INSTRUCTIONS GIVEN Add. Discharge Instructions: 1. Antibiotics as directed, topical antifungal/steroid to the lesion on the abdominal wall twice daily for 7 days. All discharge instructions reviewed with patient and/or family. Voiced understanding. Scripts Clotrimazole/Betamethasone Dip (Lotrisone Cream) 15 Gm Cream..g. 1 GM TP BID, #1 TUBE Prov: JALEESA CANDELARIO APRN 06/18/19 Cephalexin (Cephalexin) 500 Mg Tablet 500 MG PO TID, #15 TAB 0 Refills Prov: JALEESA CANDELARIO APRN 06/18/19 JALEESA CANDELARIO APRN Jun 18, 2019 15:08
[2019-06-18 15:13] VITALS: BP 140/90
== END 2019-06-18 15:13 | disposition home or self-care (01) ==
LOC: EDUNIT# 14:38 → ER 14:41
DX: L29.9 Pruritus, unspecified (principal); L98.9 Disorder of the skin and subcutaneous tissue, unspecified; E03.9 Hypothyroidism, unspecified
CPT/HCPCS: 99282

== ENCOUNTER 2019-10-30 13:41 | Emergency (ER) | payer SELFPAY ==
[~2019-10-30] VITALS: Ht 165.1 cm; Wt 59.0 kg
[~2019-10-30 13:41] MED LIST changes: +CEPH500T PO; +CLOT15CR4 TP
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
--- NOTE | 2019-10-30 14:18 | NUR ---
TO CT PER W/C
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
[2019-10-30] MEDS ORDERED: ONDA8TAB13 PO (14:49)
[2019-10-30 14:55] VITALS: BP 109/74
== END 2019-10-30 14:55 | disposition home or self-care (01) ==
LOC: EDUNIT# 13:41 → ER 13:43
DX: S06.0X0A Concussion without loss of consciousness, initial encounter (principal); S16.1XXA Strain of muscle, fascia and tendon at neck level, initial encounter; E03.9 Hypothyroidism, unspecified; Z79.890 Hormone replacement therapy; Z88.0 Allergy status to penicillin; V40.5XXA Car driver injured in collision with pedestrian or animal in traffic accident, initial encounter
CPT/HCPCS: 70450; 72125

== ENCOUNTER 2020-09-06 20:54 | Emergency (ER) | payer SELFPAY ==
[~2020-09-06] VITALS: Ht 154.5 cm; Wt 79.4 kg
[~2020-09-06 20:54] MED LIST changes: +ONDA8TAB13 PO
--- NOTE | 2020-09-06 22:46 | ED Lower Extremity ---
General Chief Complaint: Lower Extremity Stated Complaint: TOPS OF FEET SORE/PAINFUL Source: patient Exam Limitations: no limitations History of Present Illness Date Seen by Provider: September 06, 2020 Time Seen by Provider: 22:30 Initial Comments Patient is a 29-year-old female who presents to the emergency department today with a chief complaint of swelling to her bilateral feet. Patient states this is been present for the last couple of days. She denies any trauma. She states she is having left lateral foot pain in addition to the swelling in her left foot. She denies any history of trauma to this foot specifically. No twisting injuries or falls or direct blows. Patient states that she takes her medications, Lamic simon etc. for her mental health. No recent changes to these medications. She is followed by psych services through [facility] and [facility]. All other review of systems reviewed and negative except as stated above. Onset: yesterday Severity: mild Pain/Injury Location: bilateral foot Method of Injury: unknown Allergies and Home Medications Allergies Coded Allergies: amoxicillin (Verified Allergy, Unknown, RASH, 02/10/18) Home Medications Azithromycin 250 Mg Tablet, 250 MG PO UD TAKE 2 TABLETS ON DAY ONE THEN TAKE 1 TABLET DAILY FOR FOUR MORE DAYS Prescribed by: SAMSON TOBAR on 09/14/18 1425 Cephalexin 500 Mg Tablet, 500 MG PO TID Prescribed by: JALEESA CANDELARIO on 06/18/19 1508 Clotrimazole/Betamethasone Dip 15 Gm Cream..g., 1 GM TP BID Prescribed by: JALEESA CANDELARIO on 06/18/19 1508 Levothyroxine Sodium 50 Mcg Tablet, 50 MCG PO DAILY Prescribed by: CELESTE KUHN on 02/11/18 0101 Ondansetron 8 Mg Tab.rapdis, 8 MG PO Q6H PRN for NAUSEA/VOMITING Prescribed by: JALEESA CANDELARIO on 10/30/19 1449 Patient Home Medication List Home Medication List Reviewed: Yes Review of Systems Constitutional: see HPI EENTM: no symptoms reported Respiratory: no symptoms reported Cardiovascular: no symptoms reported Gastrointestinal: no symptoms reported Genitourinary: no symptoms reported Musculoskeletal: other (Swelling bilateral feet) Skin: no symptoms reported Psychiatric/Neurological: No Symptoms Reported All Other Systems Reviewed Negative Unless Noted: Yes Past Rshqukv-Fugpye-Lalobf Hx Patient Social History 2nd Hand Smoke Exposure: No Recent Hopitalizations: No Immunizations Up To Date Tetanus Booster (TDap): Less than 5yrs PED Vaccines UTD: Yes Seasonal Allergies Seasonal Allergies: No Past Medical History Surgeries: Yes (ORAL) Respiratory: Yes Asthma Cardiac: No Neurological: No Genitourinary: No Gastrointestinal: Yes Ulcer Musculoskeletal: No Endocrine: Yes Hypothyroidsim HEENT: No Cancer: No Psychosocial: Yes Anxiety Integumentary: No Blood Disorders: No Family Medical History Cancer Physical Exam Vital Signs Capillary Refill : Height, Weight, BMI Height: 5'5.00" Weight: 110lbs. oz. 49.997467xl; 21.00 BMI Method:Stated General Appearance: WD/WN, no apparent distress Cardiovascular: regular rate, rhythm, other (Distal pulses intact) Respiratory: no respiratory distress, no accessory muscle use Ankles: bilateral ankle non-tender, bilateral ankle normal inspection, bilateral ankle normal range of motion, bilateral ankle no evidence of injury Feet: bilateral foot non-tender, bilateral foot normal inspection, bilateral foot normal range of motion, bilateral foot no evidence of injury; left foot swelling (Minimal swelling noted to the left foot. No specific point tenderness to the left lateral foot. No erythema overlying rashes) Neurologic/Tendon: normal sensation, normal motor functions, normal tendon functions, responds to pain Neurologic/Psychiatric: alert, normal mood/affect, oriented x 3 Skin: normal color, warm/dry Departure Impression Primary Impression: Pedal edema Disposition: 01 HOME, SELF-CARE Condition: Stable Departure-Patient Inst. Decision time for Depature: 22:45 Referrals: [facility] (PCP/Family) Primary Care Physician Patient Instructions: Swollen Joints Add. Discharge Instructions: Elevate your feet to help lessen swelling. Continue to wear your compression socks as needed. Take Tylenol as needed for discomfort. You can take 2 extra strength Tylenol every 4-6 hours as needed for pain. Avoid ibuprofen products as this can cause you to retain fluid. Follow-up with a primary care provider. Return to the emergency room for any increased swelling especially associated with shortness of breath, nausea vomiting or any other emergent concerning symptoms. BERNARDO GILMORE MD September 06, 2020 22:46
[2020-09-06 22:55] VITALS: BP 108/75
== END 2020-09-06 22:55 | disposition home or self-care (01) ==
LOC: EDUNIT# 20:54 → ER 20:57
DX: R60.0 Localized edema (principal); E03.9 Hypothyroidism, unspecified; J45.909 Unspecified asthma, uncomplicated; Z88.1 Allergy status to other antibiotic agents; Z79.890 Hormone replacement therapy
CPT/HCPCS: 99283

== ENCOUNTER 2021-05-27 01:00 | Emergency (ER) | payer SELFPAY ==
[~2021-05-27 01:00] MED LIST changes: +CYCL10TA25 PO; -SULF1TAB35; +SULF1TAB38
[2021-05-27 01:32] LABS: BASOPHILS # (AUTO) 0.1 10^3/uL (0.0-0.1); BASOPHILS % (AUTO) 1 % (0-10); EOSINOPHILS # (AUTO) 0.6 10^3/uL (0.0-0.3); EOSINOPHILS % (AUTO) 5 % (0-10); HEMATOCRIT 43 % (35-52); HEMOGLOBIN 14.3 g/dL (11.5-16.0); LYMPHOCYTES # (AUTO) 4.4 10^3/uL (1.0-4.0); LYMPHOCYTES % (AUTO) 35 % (12-44); MEAN CORPUSCULAR HEMOGLOBIN 31 pg (25-34); MEAN CORPUSCULAR HGB CONC 33 g/dL (32-36); MEAN CORPUSCULAR VOLUME 93 fL (80-99); MEAN PLATELET VOLUME 8.9 fL (9.0-12.2); MONOCYTES # (AUTO) 1.1 10^3/uL (0.0-1.0); MONOCYTES % (AUTO) 9 % (0-12); NEUTROPHILS # (AUTO) 6.3 10^3/uL (1.8-7.8); NEUTROPHILS % (AUTO) 50 % (42-75); PLATELET COUNT 388 10^3/uL (130-400); WHITE BLOOD COUNT 12.4 10^3/uL (4.3-11.0)
--- NOTE | 2021-05-27 01:36 | ED Abdominal Pain ---
General Chief Complaint: Abdominal/GI Problems Stated Complaint: LOWER ABD PAIN Source of Information: Patient History of Present Illness Date Seen by Provider: May 27, 2021 Time Seen by Provider: 01:25 Initial Comments PT ARRIVES VIA POV FROM HOME C/O LOW ABDOMINAL PAIN AND PAIN/BURNING ON URINATION--BEGAN 5 MINUTES PRIOR TO ARRIVAL AND CAME STRAIGHT HERE TOOK TYLENOL 500 MG JUST PRIOR TO ARRIVAL NO NAUSEA/VOMITING/DIARRHEA NO FEVER HAS HAD LOWER BACK PAIN FOR OVER A MONTH, BUT IS NOT ANY DIFFERENT TONIGHT AND STATES HER BACK ALWAYS HURTS BECAUSE SHE HAS SCOLIOSIS OTHERWISE HAS FELT FINE ALL DAY--NO ABDOMINAL PAIN DURING THE DAY NO HISTORY OF SIMILAR LMP 05/09/21. NORMAL. NO CONTROL Allergies and Home Medications Allergies Coded Allergies: amoxicillin (Verified Allergy, Unknown, RASH, 02/10/18) Patient Home Medication List Home Medication List Reviewed: Yes Azithromycin (Azithromycin) 250 Mg Tablet, 250 MG PO UD Prescribed by: SAMSON TOBAR on 09/14/18 1425 Cephalexin (Cephalexin) 500 Mg Tablet, 500 MG PO TID Prescribed by: JALEESA CANDELARIO on 06/18/19 1508 Clotrimazole/Betamethasone Dip (Lotrisone Cream) 15 Gm Cream..g., 1 GM TP BID Prescribed by: JALEESA CANDELARIO on 06/18/19 1508 Ketorolac Tromethamine (Ketorolac Tromethamine) 10 Mg Tablet, 10 MG PO Q6H Prescribed by: PRASAD ALVAREZ on 05/27/21 0533 Levothyroxine Sodium (Synthroid) 50 Mcg Tablet, 50 MCG PO DAILY Prescribed by: CELESTE KUHN on 02/11/18 0101 Ondansetron (Ondansetron Odt) 8 Mg Tab.rapdis, 8 MG PO Q6H PRN for NAUSEA/VOMITING Prescribed by: JALEESA CANDELARIO on 10/30/19 1449 Quetiapine Fumarate (Seroquel) 25 Mg Tablet, Unknown Dose PO, (Reported) Entered as Reported by: JUAN CONTRERAS on 06/29/181946 Tramadol HCl (Ultram) 50 Mg Tablet, 50 MG PO Q4H Prescribed by: PRASAD ALVAREZ on 05/27/21 0534 Review of Systems Review of Systems Constitutional: no symptoms reported Respiratory: No Symptoms Reported Cardiovascular: No Symptoms Reported Gastrointestinal: See HPI, Abdominal Pain; Denies Diarrhea, Denies Nausea, Denies Vomiting Genitourinary: See HPI, Burning; Denies Flank Pain; Pain Musculoskeletal: see HPI Skin: no symptoms reported Psychiatric/Neurological: No Symptoms Reported Endocrine: No Symptoms Reported Hematologic/Lymphatic: No Symptoms Reported Past Ajsyhmn-Shpana-Wzknum Hx Patient Social History Tobacco Use?: No Smoking Status: Former Smoker Substance use?: No Alcohol Use?: No Immunizations Up To Date Tetanus Booster (TDap): Less than 5yrs PED Vaccines UTD: Yes Influenza Vaccine Up-to-Date: No; Not Current Seasonal Allergies Seasonal Allergies: No Past Medical History Surgery/Hospitalization HX: ANXIETY; DEPRESSION Surgeries: Yes (ORAL) Respiratory: Yes Asthma Cardiac: No Neurological: No Genitourinary: No Gastrointestinal: Yes Ulcer Musculoskeletal: No Endocrine: Yes Hypothyroidsim HEENT: No Cancer: No Psychosocial: Yes (panic attacks, "antisocial anxiety") Anxiety, Depression Integumentary: No Blood Disorders: No Family Medical History Cancer Physical Exam Vital Signs Vital Signs - First Documented 05/27/21 01:14 Temp 36.9 Pulse 94 Resp 16 B/P (MAP) 160/101 (120) Pulse Ox 100 O2 Delivery Room Air Capillary Refill : Height/Weight/BMI Height: 5'5.00" Weight: 110lbs. oz. 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 II-XII nml as tested, no motor/sensory deficits, alert, normal mood/affect, oriented x 3 Skin: normal color, warm/dry Progress/Results/Core Measures Results/Orders Lab Results Laboratory Tests Test 05/27/21 01:20 05/27/21 01:32 Range/Units White Blood Count 12.4 H 4.3-11.0 10^3/uL Red Blood Count 4.65 3.80-5.11 10^6/uL Hemoglobin 14.3 11.5-16.0 g/dL Hematocrit 43 35-52 % Mean Corpuscular Volume 93 80-99 fL Mean Corpuscular Hemoglobin 31 25-34 pg Mean Corpuscular Hemoglobin Concent 33 32-36 g/dL Red Cell Distribution Width 12.3 10.0-14.5 % Platelet Count 388 130-400 10^3/uL Mean Platelet Volume 8.9 L 9.0-12.2 fL Immature Granulocyte % (Auto) 0 % Neutrophils (%) (Auto) 50 42-75 % Lymphocytes (%) (Auto) 35 12-44 % Monocytes (%) (Auto) 9 0-12 % Eosinophils (%) (Auto) 5 0-10 % Basophils (%) (Auto) 1 0-10 % Neutrophils # (Auto) 6.3 1.8-7.8 10^3/uL Lymphocytes # (Auto) 4.4 H 1.0-4.0 10^3/uL Monocytes # (Auto) 1.1 H 0.0-1.0 10^3/uL Eosinophils # (Auto) 0.6 H 0.0-0.3 10^3/uL Basophils # (Auto) 0.1 0.0-0.1 10^3/uL Immature Granulocyte # (Auto) 0.0 0.0-0.1 10^3/uL Sodium Level 138 135-145 MMOL/L Potassium Level 3.3 L 3.6-5.0 MMOL/L Chloride Level 103 98-107 MMOL/L Carbon Dioxide Level 23 21-32 MMOL/L Anion Gap 12 5-14 MMOL/L Blood Urea Nitrogen 14 7-18 MG/DL Creatinine 0.83 0.60-1.30 MG/DL Estimat Glomerular Filtration Rate 98 BUN/Creatinine Ratio 17 Glucose Level 119 H 70-105 MG/DL Calcium Level 9.4 8.5-10.1 MG/DL Corrected Calcium 9.2 8.5-10.1 MG/DL Total Bilirubin 0.2 0.1-1.0 MG/DL Aspartate Amino Transf (AST/SGOT) 14 5-34 U/L Alanine Aminotransferase (ALT/SGPT) 22 0-55 U/L Alkaline Phosphatase 96 40-136 U/L Total Protein 7.7 6.4-8.2 GM/DL Albumin 4.3 3.2-4.5 GM/DL Urine Color YELLOW Urine Clarity CLEAR Urine pH 6.0 5-9 Urine Specific Musella >=1.030 1.016-1.022 Urine Protein 1+ H NEGATIVE Urine Glucose (UA) NEGATIVE NEGATIVE Urine Ketones NEGATIVE NEGATIVE Urine Nitrite NEGATIVE NEGATIVE Urine Bilirubin NEGATIVE NEGATIVE Urine Urobilinogen 1.0 < = 1.0 MG/DL Urine Leukocyte Esterase NEGATIVE NEGATIVE Urine RBC (Auto) NEGATIVE NEGATIVE Urine RBC NONE /HPF Urine WBC NONE /HPF Urine Squamous Epithelial Cells 0-2 /HPF Urine Crystals NONE /LPF Urine Bacteria TRACE /HPF Urine Casts NONE /LPF Urine Mucus SMALL H /LPF Urine Culture Indicated NO My Orders Orders - PRASDA ALVAREZ DO Urine Bedside (05/27/21 01:25) Ua Culture If Indicated (05/27/21 01:25) Ed Iv/Invasive Line Start (05/27/21 01:28) Cbc With Automated Diff (05/27/21 01:28) Comprehensive Metabolic Panel (05/27/21 01:28) Ct Abd/Pelv W (Appendicitis) (05/27/21 01:59) Iohexol Injection (Omnipaque 350 Mg/Ml 1 (05/27/21 02:30) Received Contrast (Hold Metformin- Contr (05/27/21 02:30) Sodium Chloride Flush (Catheter Flush Sy (05/27/21 02:30) Ns (Ivpb) (Sodium Chloride 0.9% Ivpb Bag (05/27/21 02:30) Ed Iv/Invasive Line Start (05/27/21 03:16) Lactated Ringers (Lr 1000 Ml Iv Solution (05/27/21 03:30) Ketorolac Injection (Toradol Injection) (05/27/21 03:16) Us Non Ob Pelvis Comp/Transvag (05/27/21 03:13) Rx-Tramadol Hcl (Rx-Ultram) (05/27/21 05:35) Medications Given in ED Current Medications Medications Dose Ordered Sig/Nicolette Route Start Time Stop Time Status Last Admin Dose Admin Iohexol 150 ml ONCE ONCE IV 05/27/21 02:30 05/27/21 02:31 DC 05/27/21 02:29 100 ML Lactated Ringer's 1,000 ml @ 0 mls/hr Q0M ONCE IV 05/27/21 03:30 05/27/21 03:31 DC 05/27/21 03:29 999 MLS/HR Sodium Chloride 10 ml NEEDED PRN IV 05/27/21 02:30 05/27/21 02:29 10 ML Sodium Chloride 100 ml ONCE ONCE IV 05/27/21 02:30 05/27/21 02:31 DC 05/27/21 02:29 80 ML Vital Signs/I&O 05/27/21 01:14 Temp 36.9 Pulse 94 Resp 16 B/P (MAP) 160/101 (120) Pulse Ox 100 O2 Delivery Room Air Progress Progress Note : Progress Note GIVEN IV FLUIDS AND TORADOL--PAIN IMPROVED AT DISMISSAL MARKED DELAY IN OBTAINING ULTRASOUND REPORT, TECH REPORT SHOWS NO EVIDENCE OF TORSION. Diagnostic Imaging Comments CT ABDOMEN / PELVIS--LARGE COMPLEX CYSTIC MASS IN PELVIX BETWEEN RECTUM AND UTERUS MEASURING 10 X 9 X 10.5 CM, UNCERTAIN ETIOLOGY, POSSIBLE OVARIAN MASS. ANTERIOR DISPLACEMENT OF UTERUS AND URINARY BLADDER. SMALL AMOUNT OF FLUID IN WERNER'S POUCH, BILATERAL PERICOLIC GUTTERS AND PELVIS. PER [facility] VIA FAX AT 0312 PELVIC ULTRASOUND--PER TECH REPORT AT 0530--NO TORSION, LARGE OVARIAN CYST. Reviewed: Reviewed by Me Departure Impression Primary Impression: Ovarian cyst Disposition: HOME, SELF-CARE Condition: Stable Departure-Patient Inst. Decision time for Depature: 05:30 Referrals: GONZALO HICKEY DO (PCP) Primary Care Physician [facility] (Family) Primary Care Physician CORDELIA BARRIOS DO Patient Instructions: Ovarian Cyst ED Add. Discharge Instructions: HOME, REST FOLLOW UP WITH DR. BARRIOS THIS WEEK FOR FURTHER CARE--CALL TODAY TO SCHEDULE APPOINTMENT RETURN TO ER IF PAIN WORSENS All discharge instructions reviewed with patient and/or family. Voiced understanding. Scripts Tramadol HCl (Ultram) 50 Mg Tablet 50 MG PO Q4H for Pain, #20 TAB Prov: PRASAD ALVAREZ DO 05/27/21 Ketorolac Tromethamine (Ketorolac Tromethamine) 10 Mg Tablet 10 MG PO Q6H for Pain, #15 TAB Prov: PRASAD ALVAREZ DO 05/27/21 PRASAD ALVAREZ DO May 27, 2021 01:35
[2021-05-27 01:37] LABS: ALBUMIN 4.3 GM/DL (3.2-4.5); POTASSIUM 3.3 MMOL/L (3.6-5.0)
[2021-05-27 01:39] LABS: CALCIUM 9.4 MG/DL (8.5-10.1)
[2021-05-27 01:40] LABS: TOTAL PROTEIN 7.7 GM/DL (6.4-8.2)
[2021-05-27 01:42] LABS: BILIRUBIN,TOTAL 0.2 MG/DL (0.1-1.0)
[2021-05-27 01:44] LABS: CREATININE SERUM 0.83 MG/DL (0.60-1.30)
[2021-05-27 01:48] LABS: BILIRUBIN,URINE NEGATIVE (NEGATIVE); CLARITY,URINE CLEAR; COLOR,URINE YELLOW; GLUCOSE, URINE (UA) NEGATIVE (NEGATIVE); KETONES,URINE NEGATIVE (NEGATIVE); LEUKOCYTE ESTERASE ,URINE NEGATIVE (NEGATIVE); NITRITE,URINE NEGATIVE (NEGATIVE); PROTEIN,URINE 1+ (NEGATIVE)
[2021-05-27 01:58] LABS: BACTERIA,URINE TRACE /HPF; SQUAMOUS EPITHELIAL CELL,UR 0-2 /HPF
[2021-05-27] MEDS ORDERED: NS 100 ML (IVPB) BAG IV ONE (02:30)
[2021-05-27] MEDS ORDERED: CATHETER FLUSH 10 ML SYR IV PRN (02:30)
[2021-05-27] MEDS ORDERED: HOLD METFORMIN - RECEIVED CONTRAST 20 ML VIAL IV SCH (02:30)
[2021-05-27] MEDS ORDERED: IOHEXOL 350 MG/ML 150 ML (OMNIPAQUE 350) VIAL IV ONE (02:30)
[2021-05-27] MEDS ORDERED: KETOROLAC 30 MG/ML VIAL IVP STA (03:16)
[2021-05-27] MEDS ORDERED: LACTATED RINGERS 1,000 ML IV ONE (03:30)
[2021-05-27] MEDS ORDERED: TRAM-42 PO (05:33)
[2021-05-27] MEDS ORDERED: KETO10TA PO (05:33)
[2021-05-27 05:45] VITALS: BP 97/54
--- NOTE | 2021-05-27 06:57 | Diagnostic Imaging Report ---
PROCEDURE: CT abdomen and pelvis with contrast, rule out appendicitis. TECHNIQUE: Multiple contiguous axial images were obtained through the abdomen and pelvis after the administration of intravenous contrast. All CT scans use one or more of the following dose optimizing techniques: automated exposure control, MA and/or KvP adjustment based on patient size and exam type or iterative reconstruction. INDICATION: Right lower quadrant abdominal pain. COMPARISON: None. FINDINGS: There is a large complex cystic mass in the cul-de-sac measuring approximately 10 x 9 x 11 cm. This displaces the uterus and urinary bladder anteriorly. There is a small amount of fluid in the pelvis and colic gutters bilaterally. This may be originating from the left ovary but is indeterminate. The lung bases are clear. Fluid in the distal esophagus. The liver, gallbladder, pancreas, spleen, adrenals, kidneys, collecting systems and bladder are unremarkable. Normal appendix. No free intraperitoneal air. No evidence of bowel obstruction. No acute osseous findings. IMPRESSION: 1. Indeterminate complex cystic mass in the cul-de-sac may be originating from the left ovary. This measures up to 11 cm. There is also free fluid in the pelvis and bilateral colic gutters. Recommend pelvic ultrasound for further evaluation. 2. Normal appendix. Agree with preliminary interpretation. Dictated by: Dictated on workstation # [id number]
--- NOTE | 2021-05-27 07:24 | Diagnostic Imaging Report ---
PROCEDURE: US Non-ob pelvis comp/trans. TECHNIQUE: Multiple realtime grayscale images were obtained of the pelvis in various projections endovaginally. Transabdominal imaging was also performed. INDICATION: Abnormal CT scan showing cyst in the pelvis with free fluid. Comparison with CT scan 05/27/2021. FINDINGS: Uterus measures 8.7 x 3.7 x 5.8 cm. Endometrial stripe is 9 mm. The right ovary measures 3.7 x 1.9 x 3 cm. Left ovary measures 10 cm showing a complex cystic structure measuring upwards of 9 cm. There is blood flow within both ovaries. There is a small amount of free fluid. IMPRESSION: Large complex cyst left ovary containing internal echoes and thickened wall. Differential would include hemorrhagic cyst versus cystadenoma. Short-term follow-up is recommended to determine whether this resolves. These findings are in agreement with the preliminary report. Dictated by: Dictated on workstation # [id number]
[2021-05-28] MEDS ORDERED: CEFU250T80 PO (21:17)
== END 2021-05-27 05:45 | disposition home or self-care (01) ==
LOC: EDUNIT# 01:00 → ER 01:04
DX: N83.202 Unspecified ovarian cyst, left side (principal); J45.909 Unspecified asthma, uncomplicated; F41.9 Anxiety disorder, unspecified; E03.9 Hypothyroidism, unspecified; Z87.891 Personal history of nicotine dependence; Z79.890 Hormone replacement therapy; Z79.899 Other long term (current) drug therapy
CPT/HCPCS: 36415; 74177; 76830; 76856; 80053; 81000; 84703; 85025

== ENCOUNTER 2021-05-28 18:38 | Emergency (ER) | payer SELFPAY ==
[~2021-05-28] VITALS: Ht 170 cm; Wt 77.0 kg
[~2021-05-28 18:38] MED LIST changes: +KETO10TA PO; +TRAM-42 PO
[2021-05-28] MEDS ORDERED: ONDANSETRON 4 MG/2 ML (SDV) Z0FRAN IVP ONE (20:00)
[2021-05-28 20:10] LABS: BILIRUBIN,URINE NEGATIVE (NEGATIVE); CLARITY,URINE SL CLOUDY; COLOR,URINE ORANGE; GLUCOSE, URINE (UA) NEGATIVE (NEGATIVE); KETONES,URINE 1+ (NEGATIVE); LEUKOCYTE ESTERASE ,URINE 2+ (NEGATIVE); NITRITE,URINE NEGATIVE (NEGATIVE); PH,URINE 6.5 (5-9); PROTEIN,URINE TRACE (NEGATIVE)
--- NOTE | 2021-05-28 20:15 | ED GI ---
General Chief Complaint: Abdominal/GI Problems Stated Complaint: VOMITING Nursing Triage Note: PT AMB TO ED BY POV WITH C/O VOMITING. PT REPORTS SHE VOMITED ONCE LAST NIGHT AT 0300 AND TWICE THIS EVENING. PT STATES SHE "IS NOT THAT NAUSEOUS RIGHT NOW." PT HAS LARGE OVARIAN CYST AND REPORTS SHE WAS INSTRUCTED TO COME TO THE ED IF SHE BEGAN VOMITING OR DEVELOPED A FEVER. HAS FOLLOW UP SCHEDULED WITH DR. BARRIOS NEXT WEEK FOR CYST. Source of Information: Patient Exam Limitations: No Limitations (JALEESA CANDELARIO APRN) History of Present Illness Date Seen by Provider: May 28, 2021 Time Seen by Provider: 19:45 Initial Comments To ER by private vehicle with reports of vomiting 1 time yesterday and 3 times this evening. She was here a few days ago and diagnosed with a 10 cm left adnexal mass. She is scheduled to see Dr. Barrios from gynecology next , 06/04/2021. She denies fevers. She denies dysuria. She denies any pain. Only complains of vomiting. At this time she is not nauseous either. Timing/Duration: 1-2 Days Severity/Quality: Mild Radiation: No Radiation Activities at Onset: None Associated Symptoms: Nausea/Vomiting (JALEESA CANDELARIO APRN) Allergies and Home Medications Allergies Coded Allergies: amoxicillin (Verified Allergy, Unknown, RASH, 02/10/18) Patient Home Medication List Home Medication List Reviewed: Yes (JALEESA CANDELARIO APRN) Azithromycin (Azithromycin) 250 Mg Tablet, 250 MG PO UD Prescribed by: SAMSON TOBAR on 09/14/18 1425 Cefuroxime Axetil (Cefuroxime) 250 Mg Tablet, 250 MG PO BID Prescribed by: JALEESA CANDELARIO on 05/28/21 2117 Cephalexin (Cephalexin) 500 Mg Tablet, 500 MG PO TID Prescribed by: JALEESA CANDELARIO on 06/18/19 1508 Clotrimazole/Betamethasone Dip (Lotrisone Cream) 15 Gm Cream..g., 1 GM TP BID Prescribed by: JALEESA CANDELARIO on 06/18/19 1508 Ketorolac Tromethamine (Ketorolac Tromethamine) 10 Mg Tablet, 10 MG PO Q6H Prescribed by: PRASAD ALVAREZ on 05/27/21 0589 Levothyroxine Sodium (Synthroid) 50 Mcg Tablet, 50 MCG PO DAILY Prescribed by: CELESTE KUHN on 02/11/18 0101 Ondansetron (Ondansetron Odt) 8 Mg Tab.rapdis, 8 MG PO Q6H PRN for NAUSEA/VOMITING Prescribed by: JALEESA CANDELARIO on 10/30/19 1449 Quetiapine Fumarate (Seroquel) 25 Mg Tablet, Unknown Dose PO, (Reported) Entered as Reported by: JUAN CONTRERAS on 06/29/18 194 Tramadol HCl (Ultram) 50 Mg Tablet, 50 MG PO Q4H Prescribed by: PRASAD ALVAREZ on 05/27/21 0534 Review of Systems Review of Systems Constitutional: see HPI EENTM: No Symptoms Reported Respiratory: No Symptoms Reported Cardiovascular: No Symptoms Reported Gastrointestinal: See HPI, Abdominal Pain Genitourinary: No Symptoms Reported Musculoskeletal: no symptoms reported Skin: no symptoms reported Psychiatric/Neurological: No Symptoms Reported Endocrine: No Symptoms Reported Hematologic/Lymphatic: No Symptoms Reported (JALEEAS CANDELARIO APRN) Past Lhhpwqo-Deuupv-Losnfe Hx Patient Social History Pt feels they are or have been: No (JALEESA CANDELARIO APRN) Immunizations Up To Date Tetanus Booster (TDap): Less than 5yrs PED Vaccines UTD: Yes Influenza Vaccine Up-to-Date: No; Not Current First/Initial COVID19 Vaccinat: N/A (JALEESA CANDELARIO APRN) Seasonal Allergies Seasonal Allergies: No (JALEESA CANDELARIO APRN) Past Medical History Surgery/Hospitalization HX: ANXIETY; DEPRESSION Surgeries: Yes (ORAL) Respiratory: Yes Asthma Cardiac: No Neurological: No Genitourinary: No Gastrointestinal: Yes Ulcer Musculoskeletal: No Endocrine: Yes Hypothyroidsim HEENT: No Cancer: No Psychosocial: Yes (panic attacks, "antisocial anxiety") Anxiety, Depression Integumentary: No Blood Disorders: No (JALEESA CANDELARIO APRN) Family Medical History Cancer (JALEESA CANDELARIO APRN) Physical Exam Vital Signs Vital Signs - First Documented 05/28/21 19:14 Temp 36.5 Pulse 77 Resp 18 B/P (MAP) 132/78 (96) Pulse Ox 99 O2 Delivery Room Air (ESTEVAN GALLOWAY MD) Vital Signs Capillary Refill : Less Than 3 Seconds (JALEESA CANDELARIO APRN) Height/Weight/BMI Height: 5'5.00" Weight: 110lbs. oz. 49.756825gg; 26.00 BMI Method:Stated General Appearance: WD/WN, no apparent distress Neck: non-tender, full range of motion Respiratory: no respiratory distress, no accessory muscle use Gastrointestinal: normal bowel sounds, non tender, soft Extremities: normal range of motion, non-tender Neurologic/Psychiatric: alert, normal mood/affect, oriented x 3 Skin: normal color, warm/dry (JALEESA CANDELARIO APRN) Progress/Results/Core Measures Results/Orders Lab Results Laboratory Tests Test 05/28/21 20:04 05/28/21 20:15 Range/Units Urine Color ORANGE Urine Clarity SL CLOUDY Urine pH 6.5 5-9 Urine Specific Rickreall 1.020 1.016-1.022 Urine Protein TRACE H NEGATIVE Urine Glucose (UA) NEGATIVE NEGATIVE Urine Ketones 1+ H NEGATIVE Urine Nitrite NEGATIVE NEGATIVE Urine Bilirubin NEGATIVE NEGATIVE Urine Urobilinogen 1.0 < = 1.0 MG/DL Urine Leukocyte Esterase 2+ H NEGATIVE Urine RBC (Auto) NEGATIVE NEGATIVE Urine RBC NONE /HPF Urine WBC 10-25 H /HPF Urine Squamous Epithelial Cells 0-2 /HPF Urine Crystals NONE /LPF Urine Bacteria MODERATE H /HPF Urine Casts PRESENT /LPF Urine Hyaline Casts RARE /LPF Urine Mucus MODERATE H /LPF Urine Culture Indicated YES White Blood Count 14.5 H 4.3-11.0 10^3/uL Red Blood Count 4.24 3.80-5.11 10^6/uL Hemoglobin 13.0 11.5-16.0 g/dL Hematocrit 39 35-52 % Mean Corpuscular Volume 93 80-99 fL Mean Corpuscular Hemoglobin 31 25-34 pg Mean Corpuscular Hemoglobin Concent 33 32-36 g/dL Red Cell Distribution Width 12.4 10.0-14.5 % Platelet Count 330 130-400 10^3/uL Mean Platelet Volume 9.3 9.0-12.2 fL Immature Granulocyte % (Auto) 0 % Neutrophils (%) (Auto) 87 H 42-75 % Lymphocytes (%) (Auto) 7 L 12-44 % Monocytes (%) (Auto) 5 0-12 % Eosinophils (%) (Auto) 2 0-10 % Basophils (%) (Auto) 0 0-10 % Neutrophils # (Auto) 12.6 H 1.8-7.8 10^3/uL Lymphocytes # (Auto) 1.0 1.0-4.0 10^3/uL Monocytes # (Auto) 0.7 0.0-1.0 10^3/uL Eosinophils # (Auto) 0.2 0.0-0.3 10^3/uL Basophils # (Auto) 0.0 0.0-0.1 10^3/uL Immature Granulocyte # (Auto) 0.1 0.0-0.1 10^3/uL Neutrophils % (Manual) 85 % Lymphocytes % (Manual) 9 % Monocytes % (Manual) 4 % Eosinophils % (Manual) 2 % Blood Morphology Comment NORMAL Sodium Level 137 135-145 MMOL/L Potassium Level 3.5 L 3.6-5.0 MMOL/L Chloride Level 103 98-107 MMOL/L Carbon Dioxide Level 24 21-32 MMOL/L Anion Gap 10 5-14 MMOL/L Blood Urea Nitrogen 7 7-18 MG/DL Creatinine 0.72 0.60-1.30 MG/DL Estimat Glomerular Filtration Rate 117 BUN/Creatinine Ratio 10 Glucose Level 101 70-105 MG/DL Calcium Level 9.4 8.5-10.1 MG/DL Corrected Calcium 9.4 8.5-10.1 MG/DL Total Bilirubin 0.4 0.1-1.0 MG/DL Aspartate Amino Transf (AST/SGOT) 15 5-34 U/L Alanine Aminotransferase (ALT/SGPT) 16 0-55 U/L Alkaline Phosphatase 91 40-136 U/L Total Protein 7.5 6.4-8.2 GM/DL Albumin 4.0 3.2-4.5 GM/DL Serum Test, Qualitative NEGATIVE NEGATIVE (ESTEVAN GALLOWAY MD) Medications Given in ED Current Medications Medications Dose Ordered Sig/Nicolette Route Start Time Stop Time Status Last Admin Dose Admin Ondansetron HCl 8 mg ONCE ONCE IVP 05/28/21 20:00 05/28/21 20:01 DC 05/28/21 20:16 8 MG (ESTEVAN GALLOWAY MD) Vital Signs/I&O 05/28/21 05/28/21 19:14 21:35 Temp 36.5 Pulse 77 72 Resp 18 18 B/P (MAP) 132/78 (96) 124/74 Pulse Ox 99 100 O2 Delivery Room Air Room Air (ESTEVAN GALLOWAY MD) Blood Pressure Mean: 96 Departure Impression Primary Impression: Nausea and vomiting Qualified Codes: R11.2 - Nausea with vomiting, unspecified Additional Impression: Ovarian cyst Disposition: HOME, SELF-CARE Condition: Stable Departure-Patient Inst. Decision time for Depature: 20:15 (JALEESA CANDELARIO APRN) Referrals: GONZALO HICKEY DO (PCP) Primary Care Physician [facility] (Family) Primary Care Physician Patient Instructions: No Instuctions Given, Urinary Tract Infection, Adult (DC) Add. Discharge Instructions: 1 keep your appointment with Dr. Barrios from gynecology as scheduled. Return to ER for any concerns. All discharge instructions reviewed with patient and/or family. Voiced understanding. Scripts Cefuroxime Axetil (Cefuroxime) 250 Mg Tablet 250 MG PO BID, #10 TAB Prov: JALEESA CANDELARIO APRN 05/28/21 ATTENDING PHYSICIAN NOTE: I was physically present as attending physician in the emergency department during the care of this patient, but I was not directly involved in the decision making or delivery of care for this patient. (ESTEVAN GALLOWAY MD) JALEESA CANDELARIO APRN May 28, 2021 20:15 ESTEVAN GALLOWAY MD May 29, 2021 03:15
[2021-05-28 20:35] LABS: BASOPHILS % (AUTO) 0 % (0-10); EOSINOPHILS # (AUTO) 0.2 10^3/uL (0.0-0.3); EOSINOPHILS % (AUTO) 2 % (0-10); HEMATOCRIT 39 % (35-52); LYMPHOCYTES % (AUTO) 7 % (12-44); MEAN CORPUSCULAR HEMOGLOBIN 31 pg (25-34); MEAN CORPUSCULAR HGB CONC 33 g/dL (32-36); MEAN CORPUSCULAR VOLUME 93 fL (80-99); MEAN PLATELET VOLUME 9.3 fL (9.0-12.2); MONOCYTES # (AUTO) 0.7 10^3/uL (0.0-1.0); MONOCYTES % (AUTO) 5 % (0-12); NEUTROPHILS # (AUTO) 12.6 10^3/uL (1.8-7.8); NEUTROPHILS % (AUTO) 87 % (42-75); PLATELET COUNT 330 10^3/uL (130-400); WHITE BLOOD COUNT 14.5 10^3/uL (4.3-11.0)
[2021-05-28 20:38] LABS: BILIRUBIN,TOTAL 0.4 MG/DL (0.1-1.0); CALCIUM 9.4 MG/DL (8.5-10.1); CREATININE SERUM 0.72 MG/DL (0.60-1.30); POTASSIUM 3.5 MMOL/L (3.6-5.0); TOTAL PROTEIN 7.5 GM/DL (6.4-8.2)
[2021-05-28 20:40] LABS: BACTERIA,URINE MODERATE /HPF; HYALINE CASTS, URINE RARE /LPF; SQUAMOUS EPITHELIAL CELL,UR 0-2 /HPF
[2021-05-28] MEDS ORDERED: CEFU250T80 PO (21:17)
[2021-05-28 21:26] LABS: EOSINOPHILS % (MANUAL) 2 %; LYMPHOCYTES % (MANUAL) 9 %; MONOCYTES % (MANUAL) 4 %; NEUTROPHILS % (MANUAL) 85 %; RBC MORPH NORMAL
[2021-05-28 21:35] VITALS: BP 124/74
== END 2021-05-28 21:35 | disposition home or self-care (01) ==
LOC: EDUNIT# 18:38 → ER 18:41
DX: N83.202 Unspecified ovarian cyst, left side (principal); R11.2 Nausea with vomiting, unspecified; J45.909 Unspecified asthma, uncomplicated; E03.9 Hypothyroidism, unspecified; F41.9 Anxiety disorder, unspecified; F32.A Depression, unspecified; Z79.890 Hormone replacement therapy; Z79.899 Other long term (current) drug therapy; Z32.02 Encounter for pregnancy test, result negative
CPT/HCPCS: 36415; 80053; 81000; 84703; 85007; 85027; 87088

== ENCOUNTER 2021-06-05 06:35 | Outpatient (CLI) | payer SELFPAY ==
[~2021-06-05] VITALS: Ht 167 cm; Wt 79.0 kg
[~2021-06-05 06:35] MED LIST changes: +CEFU250T80 PO
[2021-06-05] MEDS ORDERED: SERT50TA2 PO (17:20)
[2021-06-05] MEDS ORDERED: ARIP5TAB12 PO (17:20)
[2021-06-05] MEDS ORDERED: BUSP15TA60 PO (17:20)
[2021-06-09] MEDS ORDERED: ACET-93 PO (13:18)
[2021-06-09] MEDS ORDERED: DOCU100C37 PO (13:18)
[2021-06-09] MEDS ORDERED: IBUP-844 PO (13:18)
[2021-06-09] MEDS ORDERED: NORE5TAB2 PO (16:49)
== END 2021-06-05 18:03 | disposition home or self-care (01) ==
LOC: PREOP 06:35
PROVIDERS: ATTEND Obstetrics & Gynecology
DX: Z01.818 Encounter for other preprocedural examination (principal)

== ENCOUNTER 2021-06-09 05:47 | Day surgery (SDC) | payer OTHER ==
[~2021-06-09] VITALS: Ht 167 cm; Wt 79.0 kg
[2021-06-09] VITALS (13 sets, daily range): BP systolic 105–126; BP diastolic 58–84
[~2021-06-09 05:47] MED LIST changes: +ARIP5TAB12 PO; +BUSP15TA60 PO; +SERT50TA2 PO
[2021-06-09] MEDS ORDERED: ceFAZolin 2 GM IV Premixed 50 ML IV NR (06:00)
[2021-06-09] MEDS: LACTATED RINGERS 1,000 ML IV PRN ×2 (06:23→11:09)
[2021-06-09] MEDS ORDERED: LIDOCAINE PF 2% 5 ML (XYLOCAINE) VIAL ONE ×2 (07:05→12:48)
[2021-06-09] MEDS ORDERED: ROCURONIUM 50 MG/5 ML (ZEMURON) VIAL IV ONE (07:05)
[2021-06-09] MEDS ORDERED: ONDANSETRON 4 MG/2 ML (SDV) Z0FRAN ONE ×2 (07:05→12:48)
[2021-06-09] MEDS ORDERED: NEOSTIGMINE 3 MG/3 ML VIAL ONE ×2 (07:05→12:48)
[2021-06-09] MEDS ORDERED: fentaNYL INJ 100 MCG/2 ML AMP ONE ×3 (07:05→12:48)
[2021-06-09] MEDS ORDERED: proPOfol 200 MG/20 ML (DIPRIVAN) VIAL IV ONE ×2 (07:05→12:48)
[2021-06-09] MEDS ORDERED: MIDAZOLAM 2 MG/2 ML (VERSED) VIAL ONE ×2 (07:05→12:48)
[2021-06-09] MEDS ORDERED: GLYCOPYRROLATE 0.2 MG/ML (ROBINUL) 2 ML VIAL ONE ×2 (07:05→12:48)
[2021-06-09] MEDS ORDERED: BUPIVACAINE 0.25% 30 ML (SENSORCAINE) VIAL ONE (07:21)
--- NOTE | 2021-06-09 08:48 | Progress Note-Pre Operative ---
Pre-Operative Progress Note H&P Reviewed The H&P was reviewed, patient examined and no changes noted. Date Seen by Provider: Jun 09, 2021 Time Seen by Provider: 08:45 Date H&P Reviewed: Jun 09, 2021 Time H&P Reviewed: 08:45 Pre-Operative Diagnosis: complex left ovarian cyst CORDELIA BARRIOS DO Jun 09, 2021 08:47
[2021-06-09] MEDS ORDERED: ESMOLOL 100 MG/10 ML (BREVIBLOC) VIAL ONE (10:46)
[2021-06-09] MEDS ORDERED: KETOROLAC 30 MG/ML VIAL ONE (11:58)
[2021-06-09] MEDS: KETOROLAC 30 MG/ML VIAL IVP SCH ×2 (12:00→17:59)
[2021-06-09] MEDS ORDERED: SEVOFLURANE (ULTANE) 15 ML INHAL SOLN ONE (12:03)
--- NOTE | 2021-06-09 12:28 | Operative Report ---
Operative Report Date of Procedure/Surgery Jun 09, 2021 Surgeon (s) CORDELIA BARRIOS DO Clinical Team Lead (s): NA Post-Operative Diagnosis left ovarian endometrioma stage IV endometriosis Procedure Performed diagnostic laparoscopy left salpingoophorectomy via laparotomy Description of Procedure Anesthesia Type: General Estimated blood loss (mL): 200 Specimen(s) collected/removed left tube and ovary Description of the Procedure With informed consent, the patient was taken to the operating room where general anesthesia was found to be adequate. She was then prepped and draped in the usual sterile fashion in the dorsolithotomy position. A Boone catheter was placed in the bladder. A speculum was placed in the vagina and the cervix was grasped with a single toothed tenaculum. I then placed a [email or web address] uterine manipulator to provide a means of manipulation of the uterus. Attention was now turned to the abdomen. The umbilicus was injected with 1% lidocaine with epinephrine. I then made a 5 mm skin incision and inserted a veress needle. Intraabdominal placement was confirmed with a saline drop test and a drop in pressure. I then insufflated the abdomen to a maximum pressure of 5 mmHg. I inserted a 5 mm trocar under direct visualization with an optiview. I confirmed intraabdominal placement. A survey of the pelvis revealed the above mentioned findings. I then inserted two additional 5 mm trocars in the left lower quadrant, avoiding the inferior epigastric vessels and lateral to the rectus muscles. I fulgerated several areas of surface endometriosis from the right ovary. It otherwise appeared normal and the right tube was normal. At this point, I used graspers and abbie to gently dissect the left ovary from the posterior uterus and culdesac. The adhesions were very dense, and the tube was edematous, so I determined at this point to do a left salpingoophorectomy due to very large (10 cm) endometrioma and densle adherent and edematous tube. I determined that I would proceed with a minilaparotomy. I then made an incision in the [place] fashion with a scalpel, after injecting the skin with 1% lidocaine. I then carried this down to the fascia with the scalpel and incised the fascia with the scalpel and extended this laterally. I then dissected the rectus muscles off the fascia in a blunt fashion and the muscles in the midline. I then entered the peritoneum with metzenbaum scissors and extended this superiorly and inferiorly. I then placed a medium Sonia retractor. I packed away the bowel. I then gently dissected the ovary away from the posterior culdesac until I could differentiate the infundibulopelvic ligament. I then clamped the ligament and cut with the ligasure. This was sent for pathology. the pelvis was not extensively irrigated. There was good hemostasis, but the areas where there was surface adhesions and the area in the culdesac was oozing, so I placed Surgiflow along these edges. I then removed the packing from the abdomen and removed the sonia. I then closed the peritoneum with 3-0 Vicryl in a running fashion and reappr oximated the rectus muscles with a loose figure of eight stitch of 3-0 Vicryl. I then closed the fascia with 0 PDS and reapproximated the subcutaneous layer and scarpas fascia with interrupted stitched of 3-0 Vicryl. I then closed the skin with subcuticular stitch of 4-0 Monocryl. Surgifix was placed and then a pressure bandage was placed. I closed the 5 mm trocar sites with surgifix. The instruments were removed from the vagina. The patient was then awakened and taken to recovery in a stable condition. Sponge, lap, needle and instrument counts were correct times two, Findings of the Procedure left ovary filled culdesac stuck to uterus, left tube, culdesac, left pelvic side wall endometriosis in culdesac and on right ovary right ovary and tube appeared normal except for evidence of endometriosis on the surface. Allergies and Home Medications Allergies Coded Allergies: amoxicillin (Verified Allergy, Unknown, RASH, 02/10/18) Patient Home Medication List Home Medication List Reviewed: Yes Acetaminophen (Acetaminophen) 500 Mg Tablet, 1,000 MG PO Q8HR Prescribed by: CORDELIA BARRIOS on 06/09/21 1318 Aripiprazole (Abilify) 5 Mg Tablet, 5 MG PO DAILY, (Reported) Entered as Reported by: ALANNAH JI on 06/05/211719 Last Action: Reviewed Buspirone HCl (Buspirone HCl) 15 Mg Tablet, 15 MG PO DAILY, (Reported) Entered as Reported by: ALANNAH JI on 06/05/211719 Last Action: Reviewed Docusate Sodium (Docusate Sodium) 100 Mg Capsule, 100 MG PO BID Prescribed by: CORDELIA BARRIOS on 06/09/21 1318 Ibuprofen (Ibu) 600 Mg Tablet, 600 MG PO Q6HR Prescribed by: CORDELIA BARRIOS on 06/09/21 1318 Norethindrone Acetate (Aygestin) 5 Mg Tablet, 5 MG PO DAILY Prescribed by: CORDELIA BARRIOS on 06/09/21 1649 Sertraline HCl (Zoloft) 50 Mg Tablet, 50 MG PO DAILY, (Reported) Entered as Reported by: ALANNAH JI on 06/05/21 1720 Last Action: Reviewed Tramadol HCl (Ultram) 50 Mg Tablet, 50 MG PO Q4H Prescribed by: PRASAD ALVAREZ on 05/27/21 0534 Last Action: Reviewed CORDELIA BARRIOS DO Jun 09, 2021 12:28
[2021-06-09] MEDS ORDERED: D5 LR IV SOLUTION 1,000 ML IV SCH (12:30)
[2021-06-09] MEDS ORDERED: morphine INJ 4 MG/ML 1 ML (VIAL/SYRINGE) IV PRN (12:30)
[2021-06-09] MEDS ORDERED: PROMETHAZINE INJ 25 MG/ML (PHENERGAN) AMP IVP ONE (12:30)
[2021-06-09] MEDS ORDERED: morphine INJ 10 MG/ML 1ML (SYR OR VIAL) IVP ONE (12:30)
[2021-06-09] MEDS ORDERED: ONDANSETRON 4 MG/2 ML (SDV) Z0FRAN IVP PRN ×2 (12:30)
[2021-06-09] MEDS ORDERED: NALOXONE 0.4 MG/ML 1 ML (NARCAN) VIAL IV PRN (12:30)
[2021-06-09] MEDS ORDERED: HYDROmorphone 2 MG/ML VIAL (DILAUDID) IV ONE (12:30)
[2021-06-09] MEDS ORDERED: ACET-93 PO (13:18)
[2021-06-09] MEDS ORDERED: IBUP-844 PO (13:18)
[2021-06-09] MEDS ORDERED: DOCU100C37 PO (13:18)
--- NOTE | 2021-06-09 13:19 | Discharge Inst-Women's Service ---
Discharge Inst-Women's Serv Depart Medication/Instructions New, Converted or Re-Newed RX: Transmitted to Pharmacy Final Diagnosis left adnexal mass endometrioma stage IV endometriosis Problems Reviewed?: Yes Consults/Follow Up Additional Follow Up: Yes (1 week for incision check) Activity Activity: Activity as Tolerated Driving Instructions: No Driving for 1 Week NO SMOKING: NO SMOKING Nothing Inside Vagina: No Douching, No [place], No Tampons Diet Discharge Diet: No Restrictions Symptoms to Report to : Bleeding Excessive, Pain Increased, Fever Over 101 Degrees F, Vaginal Bleeding Increase, Cramps in Feet or Legs, Vaginal Discharge Foul For Any Problems or Questions: Contact Your Physician Skin/Wound Care Infection Signs and Symptoms: Increased Redness, Foul Odor of Wound, Increased Drainage, Skin Itchy or Has a Rash, Increased Swelling, Temperature Above 101 F Operative Area Clean and Dry: You May Remove Bandage (tomorrow) Stitches/[place]/Dermabond: Dermabond Bathing Instructions: CORDELIA Mckeon DO Jun 09, 2021 13:19
[2021-06-09] MEDS ORDERED: D5 LR IV SOLUTION 1,000 ML IV ONE (13:25)
[2021-06-09] MEDS ORDERED: morphine INJ 4 MG/ML 1 ML (VIAL/SYRINGE) ONE (13:41)
[2021-06-09] MEDS ORDERED: NORE5TAB2 PO (16:49)
[2021-06-09] MEDS: ACETAMINOPHEN 500 MG TAB (TYLENOL) PO SCH (18:02)
[2021-06-10 00:18] VITALS: BP 113/59
[2021-06-10] MEDS: KETOROLAC 30 MG/ML VIAL IVP SCH ×2 (00:18→05:19)
[2021-06-10 05:18] VITALS: BP 97/53
[2021-06-10 07:30] LABS: BASOPHILS # (AUTO) 0.1 10^3/uL (0.0-0.1); BASOPHILS % (AUTO) 0 % (0-10); EOSINOPHILS % (AUTO) 0 % (0-10); HEMATOCRIT 34 % (35-52); HEMOGLOBIN 11.1 g/dL (11.5-16.0); LYMPHOCYTES # (AUTO) 1.5 10^3/uL (1.0-4.0); LYMPHOCYTES % (AUTO) 7 % (12-44); MEAN CORPUSCULAR HEMOGLOBIN 31 pg (25-34); MEAN CORPUSCULAR HGB CONC 33 g/dL (32-36); MEAN CORPUSCULAR VOLUME 93 fL (80-99); MEAN PLATELET VOLUME 9.6 fL (9.0-12.2); MONOCYTES # (AUTO) 1.3 10^3/uL (0.0-1.0); MONOCYTES % (AUTO) 6 % (0-12); NEUTROPHILS # (AUTO) 18.8 10^3/uL (1.8-7.8); NEUTROPHILS % (AUTO) 86 % (42-75); PLATELET COUNT 380 10^3/uL (130-400); WHITE BLOOD COUNT 21.8 10^3/uL (4.3-11.0)
[2021-06-10 08:15] VITALS: BP 116/55
[2021-06-10] MEDS: ACETAMINOPHEN 500 MG TAB (TYLENOL) PO SCH (08:22)
[2021-06-10 08:38] LABS: BAND NEUTROPHILS 1 %; BASOPHILS % (MANUAL) 0 %; EOSINOPHILS % (MANUAL) 0 %; LYMPHOCYTES % (MANUAL) 10 %; MONOCYTES % (MANUAL) 6 %; NEUTROPHILS % (MANUAL) 83 %; RBC MORPH NORMAL
--- NOTE | 2021-06-10 08:54 | Anesthesia-General Post-Op ---
General Patient Condition Mental Status/LOC: Same as Preop Cardiovascular: Satisfactory Nausea/Vomiting: Absent Respiratory: Satisfactory Pain: Controlled Complications: Absent Post Op Complications Complications None Follow Up Care/Instructions Patient Instructions None needed. Anesthesia/Patient Condition Patient Condition Patient is doing well, no complaints, stable vital signs, no apparent adverse anesthesia problems. No complications reported per nursing. [place] [facility] [place] ZANDRA INGRAM CRNA Jun 10, 2021 08:54
[2021-06-10] MEDS ORDERED: DOCUSATE SODIUM 100 MG (COLACE) CAP PO SCH (09:00)
[2021-06-10 10:25] VITALS: BP 116/55
[2021-06-10] MEDS ORDERED: IBUPROFEN 600 MG (MOTRIN) TAB PO SCH (12:30)
== END 2021-06-10 10:25 | disposition home or self-care (01) ==
LOC: SDC 05:47 → WS 12:58 → SDC 06-10 10:25
PROVIDERS: ATTEND Obstetrics & Gynecology
DX: N80.1 Endometriosis of ovary (principal); N80.9 Endometriosis, unspecified; K66.0 Peritoneal adhesions (postprocedural) (postinfection); N83.292 Other ovarian cyst, left side; Z79.899 Other long term (current) drug therapy
CPT/HCPCS: 58662; 84703; 85007; 85027; 87081; 88305; C1765; 36415